=== PATIENT | male | born 1955 | race Caucasian/White ===

== ENCOUNTER 2020-04-20 08:34 | Emergency (ER) | payer OTHER ==
[2020-04-20 08:45] VITALS: TEMP 97; BMI 27.5
[2020-04-20] MEDS ORDERED: ACETAMINOPHEN 1000 MG/100 ML VIAL (NON FORMULARY) IVPB ONE (09:46)
[2020-04-20] MEDS ORDERED: SODIUM CHLORIDE 1,000 ML IV STA (09:46)
[2020-04-20] MEDS ORDERED: ACETAMINOPHEN INJECTION 100 ML IVPB ONE (10:12)
[2020-04-20 10:58] LABS: BASO % 0.9 % (0-2.0); EOS % 3.9 % (0-4.5); HEMATOCRIT 35.7 % (35.4-49); HEMOGLOBIN 11.6 GM/dL (11.7-16.9); MCH 28.6 pg (25.7-33.7); MCHC 32.4 g/dl (32.0-35.9); MEAN CELL VOLUME 88.2 fl (80-96); MEAN PLT VOLUME 7.8 fl (7.5-11.1); MONO % 11.4 % (3.8-10.2); NEUT % 63.8 % (42.8-82.8); PLATELET COUNT 379 K/MM3 (134-434); RBC 4.04 M/mm3 (4.00-5.60); RDW 16.8 % (11.9-15.9); WHITE BLOOD COUNT 5.9 K/mm3 (4.0-10.0)
[2020-04-20 11:38] LABS: ALBUMIN 3.2 g/dl (3.4-5.0); BILIRUBIN,TOTAL 0.4 mg/dL (0.2-1); CALCIUM 8.5 mg/dL (8.5-10.1); CREATININE 1.5 mg/dL (0.55-1.3); MAGNESIUM 2.3 mg/dL (1.8-2.4); TOT PROT 7.5 g/dl (6.4-8.2)
--- NOTE | 2020-04-20 11:47 | PDOC ---
History of Present Illness - General Chief Complaint: Headache Stated Complaint: HEADACHE Time Seen by Provider: 04/20/20 09:44 History Source: Patient Exam Limitations: No Limitations - History of Present Illness Initial Comments: 04/20/20 10:43 64-year-old male presents to ED with complaints of frontal throbbing pressure for the past day without dizziness visual changes, weakness, or fever. 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 Patient states is followed by [facility] physicians for his chemotherapy which he receives regularly next dose being this upcoming Tuesday. Patient denies any recent fall, recent illness, neck pain, or hearing changes. Timing/Duration: reports: 24 hours Severity: Yes: moderate Associated Symptoms: reports: denies symptoms, other Past History - Medical History Allergies/Adverse Reactions: Allergies Allergy/AdvReac Type Severity Reaction Status Date / Time No Known Allergies Allergy Verified 04/20/20 08:45 Cancer: Yes (18 months ago with mets) COPD: Yes HTN: Yes Hypercholesterolemia: Yes Psychiatric Problems: Yes (bi polar) - Psycho-Social/Smoking History Patient Lives Alone: Yes Lives with/in: lives alone Smoking History: Current every day smoker Number of Cigarettes Smoked Daily: 60 Information on smoking cessation initiated: No Neuro Specific PMHX - Complaint Specific PMHX Migraine: No Review of Systems - Review of Systems Able to Perform ROS?: Yes Constitutional: No: Symptoms Reported HEENTM: No: Symptoms Reported Respiratory: No: Symptoms reported Cardiac (ROS): No: Symptoms Reported ABD/GI: No: Symptoms Reported : No: Symptoms Reported, Testicular Mass Integumentary: No: Symptoms Reported Neurological: Yes: Headache. No: Paresthesia, Weakness, Dizziness Endocrine: No: Symptoms Reported Hematologic/Lymphatic: No: Symptoms Reported *Physical Exam - Vital Signs Last Vital Signs Temp Pulse Resp BP Pulse Ox 97 F L 90 18 119/74 97 04/20/20 08:40 04/20/20 08:40 04/20/20 08:40 04/20/20 08:40 04/20/20 08:40 - Physical Exam General Appearance: Yes: Nourished, Appropriately Dressed. No: Apparent Distress HEENT: positive: EOMI, TIERNEY, TMs Normal, Pharynx Normal. negative: Pale Conj unctivae Neck: positive: Supple. negative: Tender, Decreased range of motion Respiratory/Chest: positive: Lungs Clear, Normal Breath Sounds. negative: Respiratory Distress, Accessory Muscle Use Gastrointestinal/Abdominal: positive: Soft. negative: Tenderness Extremity: positive: Normal Inspection Integumentary: positive: Normal Color, Warm, Moist Neurologic: positive: Motor Strength 5/5 (Ambulatory) ED Treatment Course - LABORATORY CBC & Chemistry Diagram: 04/20/20 10:10 04/20/20 09:56 - ADDITIONAL ORDERS Additional order review: Laboratory Results 04/20/20 09:56 Sodium 131 L Chloride 100 Carbon Dioxide 26 BUN 26.0 H Creatinine 1.5 H Est GFR (CKD-EPI)AfAm 55.43 Est GFR (CKD-EPI)NonAf 47.82 Random Glucose 93 Calcium 8.5 Magnesium 2.3 Total Bilirubin 0.4 AST 83 H Alkaline Phosphatase 110 Total Protein 7.5 Albumin 3.2 L 04/20/20 10:10 RBC 4.04 MCV 88.2 MCHC 32.4 RDW 16.8 H MPV 7.8 Neutrophils % 63.8 Lymphocytes % 20.0 Monocytes % 11.4 H Eosinophils % 3.9 Basophils % 0.9 - RADIOLOGY Radiology Studies Ordered: Category Date Time Status HEAD CT WITHOUT CONTRAST [CT] Stat CT Scan 04/20/20 11:05 Completed - Medications Given in the ED: ED Medications Discontinued Medications Generic Name Dose Route Start Last Admin Trade Name Freq PRN Reason Stop Dose Admin Acetaminophen 1,000 mg 04/20/20 09:46 04/20/20 10:21 Ofirmev Injection - IVPB 04/20/20 09:47 1,000 mg ONCE ONE Administration Sodium Chloride 1,000 mls @ 1,000 mls/hr 04/20/20 09:46 04/20/20 10:21 Normal Saline - IV 04/20/20 10:45 1,000 mls/hr ASDIR STA Administration Medical Decision Making - Medical Decision Making 04/20/20 10:45 Chief complaint: Frontal headache since yesterday with no improvement with Percocet. Patient with history of stage IV cancer. No other complaints. Exam: Patient with normal physical exam. Plan: Labs, fluids, IV Tylenol and head CT ordered 04/20/20 11:46 Laboratory Tests 04/20/20 04/20/20 09:56 10:10 WBC 5.9 Hgb 11.6 L Hct 35.7 RDW 16.8 H Eosinophils % 3.9 Sodium 131 L Potassium Pending Chloride 100 Carbon Dioxide 26 Anion Gap Pending BUN 26.0 H Creatinine 1.5 H Est GFR (CKD-EPI)AfAm 55.43 Est GFR (CKD-EPI)NonAf 47.82 Random Glucose 93 Calcium 8.5 Magnesium 2.3 Total Bilirubin 0.4 AST 83 H ALT Pending Alkaline Phosphatase 110 Total Protein 7.5 Albumin 3.2 L Patient states feeling better after receiving medication. Head CT negative for acute pathology. Discharge - Discharge Information Problems reviewed: Yes Clinical Impression/Diagnosis: Headache Condition: Improved Disposition: HOME - Follow up/Referral Referrals: Al Wills MD [Primary Care Provider] - - Patient Discharge Instructions Patient Printed Discharge Instructions: DI for Headache Additional Instructions: Try to eat small frequent well-balanced meals as you are sodium and your creatinine were slightly elevated concerning for electrolyte imbalance. - Post Discharge Activity
[2020-04-20 11:55] LABS: POTASSIUM 7.6 mmol/L (3.5-5.1)
[2020-04-20 12:11] VITALS: BP 139/71; PULSE 85
== END 2020-04-20 13:09 | disposition home or self-care (01) ==
LOC: JER 08:34
PROC: 3E0333Z Introduction of Anti-inflammatory into Peripheral Vein, Percutaneous Approach (ICD-10-PCS; principal; 2020-04-20)
PROC: 3E0337Z Introduction of Electrolytic and Water Balance Substance into Peripheral Vein, Percutaneous Approach (ICD-10-PCS; 2020-04-20)
DX: R51 Headache (principal)
CPT/HCPCS: 36415; 70450-TC; 80053; 83735; 85025; 99284-25; J0131